=== PATIENT | male | born 1985 | race Caucasian/White ===

== ENCOUNTER 2018-02-16 00:34 | Emergency (ER) | payer OTHER ==
[2018-02-16 00:47] VITALS: TEMP 97.9
[2018-02-16] MEDS ORDERED: MORPHINE SULFATE 4 MG/ML SYRINGE IV STA (01:10)
[2018-02-16] MEDS ORDERED: DIPH,PERTUS(ACELL)TETVAC-LF 0.5 ML VIAL IM ONE (01:10)
[2018-02-16] MEDS ORDERED: ceFAZolin 2,000 MG in DEXTROSE/WATER 1 50ML.BAG IVPB STA (01:11)
[2018-02-16] MEDS ORDERED: ceFAZolin IN SWFI 2 GM/20 ML SYRINGE IVP ONE (01:30)
[2018-02-16] MEDS ORDERED: ONDANSETRON 4 MG/2 ML VIAL IVP STA (01:55)
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
[2018-02-16 02:02] LABS: Appearance,Urine Clear (Clear); Bilirubin,Urine Negative (Negative); Blood,Urine Negative (Negative); Color,Urine Light Yellow; Glucose,Urine (UA) Negative (Negative); Ketones,Urine Negative (Negative); Leukocyte Esterase,Urine Negative (Negative); Nitrite,Urine Negative (Negative); Protein,Urine Negative (Negative); Specific Gravity,Urine 1.006 (1.001-1.035); Urobilinogen,Urine <2.0 mg/dL (<2.0)
[2018-02-16 02:05] LABS: Basophils % (A) 0 %; Eosinophils % (A) 0 %; HCT 46.5 % (39.0-53.0); HGB 15.3 gm/dL (13.0-17.5); Lymphocytes # (A) 0.8 k/uL (1.0-4.8); Lymphocytes % (A) 5 %; MCH 32.1 pg (25.0-35.0); MCHC 32.8 g/dL (31.0-37.0); MCV 97.9 fL (80.0-100.0); Mean Platelet Volume 7.6; Monocytes # (A) 0.8 k/uL (0-1.0); Monocytes % (A) 4 %; Neutrophils # (A) 16.2 k/uL (1.3-7.7); Neutrophils % (A) 90 %; Platelet Count 163 k/uL (150-450); RBC 4.75 m/uL (4.30-5.90); RDW 12.5 % (11.5-15.5)
[2018-02-16 02:09] VITALS: RESP 18
[2018-02-16 02:09] LABS: Prothrombin Time 9.8 sec (9.0-12.0)
[2018-02-16 02:13] LABS: Amphetamine Screen,Urine Not Detected (NotDetected); Barbiturate Screen,Urine Not Detected (NotDetected); Benzodiazepines Screen,Urine Not Detected (NotDetected); Cocaine Screen,Urine Not Detected (NotDetected); Methadone Screen, Urine Not Detected (NotDetected); Opiate Screen,Urine Not Detected (NotDetected); Oxycodone Screen, Urine Not Detected (NotDetected); Phencyclidine Screen,Urine Not Detected (NotDetected); Tricyclic Antidepressant,Urine Not Detected (NotDetected); Urn Cannabinoid Scrn Detected (NotDetected)
[2018-02-16 02:14] LABS: Albumin 4.8 g/dL (3.5-5.0); Anion Gap 11 mmol/L; Calcium 9.5 mg/dL (8.4-10.2); Carbon Dioxide 25 mmol/L (22-30); Chloride 109 mmol/L (98-107); Glucose 110 mg/dL (74-99); Sodium 145 mmol/L (137-145); Total Bilirubin 0.5 mg/dL (0.2-1.3); Total Protein 7.7 g/dL (6.3-8.2)
[2018-02-16 02:23] LABS: Creatine Kinase 385 U/L (55-170)
[2018-02-16 02:24] LABS: Alcohol 208 mg/dL
[2018-02-16 02:25] LABS: ALT 23 U/L (21-72); AST 40 U/L (17-59); Alkaline Phosphatase 52 U/L (38-126); Blood Urea Nitrogen 9 mg/dL (9-20); Potassium 4.7 mmol/L (3.5-5.1)
[2018-02-16 02:36] LABS: Creatine Kinase MB 2.9 ng/mL (0.0-2.4); Troponin I <0.012 ng/mL (0.000-0.034)
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
[2018-02-16] MEDS ORDERED: MORPHINE SULFATE 4 MG/ML SYRINGE IVP STA ×2 (03:05→03:07)
[2018-02-16 03:13] VITALS: BP 117/73; PULSE 89
== END 2018-02-16 03:24 | disposition short-term general hospital (02) ==
LOC: EC 00:34
DX: S02.31XA Fracture of orbital floor, right side, initial encounter for closed fracture (principal); S02.40EA Zygomatic fracture, right side, initial encounter for closed fracture; S01.111A Laceration without foreign body of right eyelid and periocular area, initial encounter; F17.200 Nicotine dependence, unspecified, uncomplicated; F10.129 Alcohol abuse with intoxication, unspecified; Z23 Encounter for immunization; Y04.8XXA Assault by other bodily force, initial encounter; Y92.099 Unspecified place in other non-institutional residence as the place of occurrence of the external cause
CPT/HCPCS: 99285; 96374; 96375 ×2; 96376; 90471; 36415; 93005; 86900; 86901; 80053; 82550; 82553; 83605; 84484; 85025; 85610; 85730; 86850; 81003; 80306; 80320; 72125; 70486; 70450; 90715; J2270; J2405; J0690

== ENCOUNTER → 2018-08-07 | Outpatient (CLI) | payer OTHER ==
--- NOTE | 2018-08-07 13:50 | CT ---
EXAMINATION TYPE: CT facial bones wo con DATE OF EXAM: 08/07/2018 COMPARISON: 02/16/2018 HISTORY: Fracture of nasal bones CT DLP: 728 mGycm CONTRAST: 0 mL of Isovue 300 The paranasal sinuses are examined in the axial plane at 2 mm thick sections. Reconstructed images i n the coronal plane were obtained. There is been repair of prior facial bone fractures including inferior right orbital floor, anterior right maxillary sinus wall, anterior left maxillary wall. There is prior fracture of the nasal bones. There is left septal deviation. Zygomatic arches appear intact There is air-fluid levels within the maxillary sinuses. Sphenoid sinuses are clear. Ethmoid air cells and mucosal thickening within the anterior and right mid regions. Frontal sinuses are clear. Acute f ractures are not identified. Mastoid air cells are clear. IMPRESSIONS: 1. Air-fluid levels within the maxillary sinuses. Correlate for acute sinusitis. 2. Prior facial bone repair. 3. Old Fractures of the nasal bone and old fracture of the right posterior lateral maxillary sinus is evident.
== END | disposition home or self-care (01) ==
LOC: RADCTMAIN 13:12
PROVIDERS: ATTEND Dentist Oral and Maxillofacial Pathology
DX: Z09 Encounter for follow-up examination after completed treatment for conditions other than malignant neoplasm (principal); J34.89 Other specified disorders of nose and nasal sinuses; Z87.81 Personal history of (healed) traumatic fracture
CPT/HCPCS: 70486

== ENCOUNTER 2018-12-16 17:00 | Observation (INO) | payer OTHER ==
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
[2018-12-16 19:49] LABS: Basophils # (A) 0.1 k/uL (0-0.2); Basophils % (A) 1 %; Eosinophils # (A) 0.1 k/uL (0-0.7); Eosinophils % (A) 1 %; HCT 47.9 % (39.0-53.0); HGB 16.2 gm/dL (13.0-17.5); Lymphocytes # (A) 2.4 k/uL (1.0-4.8); Lymphocytes % (A) 33 %; MCH 31.5 pg (25.0-35.0); MCHC 33.8 g/dL (31.0-37.0); MCV 93.2 fL (80.0-100.0); Mean Platelet Volume 7.8; Monocytes # (A) 0.3 k/uL (0-1.0); Monocytes % (A) 4 %; Neutrophils # (A) 4.3 k/uL (1.3-7.7); Neutrophils % (A) 59 %; Platelet Count 188 k/uL (150-450); RBC 5.14 m/uL (4.30-5.90); RDW 13.6 % (11.5-15.5); WBC 7.3 k/uL (3.8-10.6)
[2018-12-16 20:00] LABS: Amphetamine Screen,Urine Not Detected (NotDetected); Barbiturate Screen,Urine Not Detected (NotDetected); Benzodiazepines Screen,Urine Not Detected (NotDetected); Cocaine Screen,Urine Not Detected (NotDetected); Methadone Screen, Urine Not Detected (NotDetected); Opiate Screen,Urine Not Detected (NotDetected); Oxycodone Screen, Urine Not Detected (NotDetected); Phencyclidine Screen,Urine Not Detected (NotDetected); Tricyclic Antidepressant,Urine Not Detected (NotDetected); Urn Cannabinoid Scrn Not Detected (NotDetected)
[2018-12-16 20:02] LABS: African American GFR (CKD) >90 (>60 ml/min/1.73 sqM); Anion Gap 12 mmol/L; Blood Urea Nitrogen 9 mg/dL (9-20); Calcium 9.3 mg/dL (8.4-10.2); Carbon Dioxide 27 mmol/L (22-30); Chloride 108 mmol/L (98-107); Glucose 99 mg/dL (74-99); Magnesium 2.3 mg/dL (1.6-2.3); Potassium 4.5 mmol/L (3.5-5.1); Sodium 147 mmol/L (137-145)
[2018-12-16 20:06] LABS: INR 0.9 (<1.2)
[2018-12-16 20:07] LABS: Alcohol 287 mg/dL
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
--- NOTE | 2018-12-16 21:28 | XR ---
EXAMINATION TYPE: XR chest 2V DATE OF EXAM: 12/16/2018 COMPARISON: None HISTORY: 33-year-old male with pain TECHNIQUE: PA and lateral views FINDINGS: The cardiomediastinal silhouette, aorta, and pulmonary vasculature are within normal limits. Lungs an d pleural spaces are clear. IMPRESSION: No acute cardiopulmonary process.
[2018-12-16] MEDS ORDERED: NICOTINE 14MG/24HR PATCH TRANSDERM STA (21:31)
[2018-12-16] MEDS ORDERED: NALOXONE 0.4 MG/ML 1 ML VIAL IV PRN (23:11)
[2018-12-16] MEDS ORDERED: ONDANSETRON 4 MG/2 ML VIAL IVP PRN (23:11)
[2018-12-16] MEDS ORDERED: ACETAMINOPHEN TAB 325 MG TAB PO PRN (23:11)
[2018-12-16] MEDS ORDERED: KETOROLAC 30 MG/ML 1 ML VIAL IVP PRN (23:11)
[2018-12-16] MEDS ORDERED: SODIUM CHLORIDE 0.9% 1,000 ML IV SCH (23:15)
[2018-12-16] MEDS ORDERED: LORazepam 2 MG/ML INJ IV PRN ×3 (23:48)
[2018-12-16] MEDS ORDERED: THIAMINE 100 MG/ML 2 ML VIAL IM STA (23:48)
[2018-12-17 00:35] VITALS: BMI 21.5
[2018-12-17] MEDS ORDERED: NICOTINE 14MG/24HR PATCH TRANSDERM SCH (01:00)
[2018-12-17 07:46] VITALS: BP 154/81; TEMP 98.3
[2018-12-17] MEDS ORDERED: FAMOTIDINE 20 MG TAB PO SCH (09:00)
[2018-12-17 11:42] VITALS: PULSE 102; RESP 14
[2018-12-17] MEDS ORDERED: NICOTINE 21MG/24HR PATCH TRANSDERM SCH (13:15)
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
--- NOTE | 2018-12-17 14:56 | P.DS ---
Providers Date of admission: 12/16/18 23:13 Attending physician: Saleem Vega Consults: 12/16/18 23:12 Consult Physician Routine Consulting Provider: Nancy Cooley Consult Reason/Comments: suicidal ideation Do you want consulting provider notified?: Yes Primary care physician: Cheryle Bingham Hospital Course: Please refer to my HPI Patient Condition at Discharge: Fair Plan - Discharge Summary New Discharge Prescriptions: No Action Ibuprofen [Motrin Ib] 400 mg PO Q6H PRN PRN Reason: Migraine Headache Discharge Medication List Ibuprofen [Motrin Ib] 400 mg PO Q6H PRN 12/17/18 [History] Follow up Appointment(s)/Referral(s): Cheryel Bingham MD [Primary Care Provider] - 3 Days Discharge Disposition: HOME SELF-CARE
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
[2018-12-17] MEDS ORDERED: THIAMINE 100 MG TAB PO SCH (17:30)
== END 2018-12-17 17:15 | disposition home or self-care (01) ==
LOC: EC 17:00 → 4SSUR 23:13
PROVIDERS: ADMIT Hospitalist; ATTEND Hospitalist
DX: F10.229 Alcohol dependence with intoxication, unspecified (principal); F10.29 Alcohol dependence with unspecified alcohol-induced disorder; R45.851 Suicidal ideations; G43.909 Migraine, unspecified, not intractable, without status migrainosus; F17.200 Nicotine dependence, unspecified, uncomplicated; Y90.8 Blood alcohol level of 240 mg/100 ml or more; Z79.1 Long term (current) use of non-steroidal anti-inflammatories (NSAID); Z87.820 Personal history of traumatic brain injury; Z87.828 Personal history of other (healed) physical injury and trauma
CPT/HCPCS: 96372; 96374; 82075; 99285; 36415; 80048; 83735; 85025; 85610; 80306; 71046; 72125; 70450; G0378 ×2; G0480; S4990 ×3; J3411; J2405; 80320

== ENCOUNTER → 2018-12-25 | Outpatient (CLI) | payer OTHER ==
[2018-12-25 13:19] LABS: Mean Platelet Volume 8.1; Platelet Count 175 k/uL (150-450)
[2018-12-25 18:14] LABS: Anion Gap 6.3 mmol/L (4.00-12.00); Carbon Dioxide 28.7 mmol/L (21.6-31.8); Potassium 4.4 mmol/L (3.5-5.5)
== END | disposition home or self-care (01) ==
LOC: LABWHC1 12:38
PROVIDERS: ATTEND Psychiatry & Neurology Neurology
DX: G44.329 Chronic post-traumatic headache, not intractable (principal)
CPT/HCPCS: 36415; 80051; 84450; 84460; 85049

== ENCOUNTER → 2018-12-25 | Outpatient (CLI) | payer OTHER ==
--- NOTE | 2018-12-25 12:59 | CT ---
EXAMINATION TYPE: CT brain wo con, CT facial bones wo con DATE OF EXAM: 12/25/2018 COMPARISON: 12/16/2018 HISTORY: Pain Unenhanced CT of the brain was performed. The ventricles, basal cisterns and sulci overlying the cerebral convexities demonstrate a normal appe arance. There is no evidence for intracranial hemorrhage or sulcal effacement. No mass effects are seen. Osseous calvarium is intact. Posterior right parietal scalp hematoma small in size. If symptoms persist consider MRI as clinically warranted. IMPRESSION: 1. No acute intracranial process is seen at this time. EXAMINATION TYPE: CT brain wo con, CT facial bones wo con DATE OF EXAM: 12/25/2018 COMPARISON: 08/07/2018 HISTORY: Pain Unenhanced CT of the facial bones was performed in the axial and coronal planes. Bone and soft tissu e window settings are submitted. Postsurgical changes noted involving the floor of the right orbit as well as the lateral wall of the right maxillary sinus and anterolateral wall of the left maxillary sinus. Post operative plate fixati on noted superolateral wall of the right orbit. There is mucosal thickening of the maxillary sinuses. Remote fracture right zygoma is noted as well. Healed nasal bone fractures noted. Chronic ethmoidal sinusitis identified as well. No bony destructive process to suggest underlying osteomyelitis at this time. IMPRESSION: 1. No evidence for acute depressed or displaced facial bone fracture. Surgical fixation as noted. Ch ronic ethmoidal and maxillary sinusitis.
== END | disposition home or self-care (01) ==
LOC: RADCTMAIN 12:11
PROVIDERS: ATTEND Psychiatry & Neurology Neurology
DX: G44.329 Chronic post-traumatic headache, not intractable (principal); Z87.820 Personal history of traumatic brain injury; J32.4 Chronic pansinusitis
CPT/HCPCS: 70450; 70486

== ENCOUNTER 2019-05-12 16:41 | Inpatient (IN) | payer OTHER ==
[2019-05-12] MEDS ORDERED: SODIUM CHLORIDE 0.9% 1,000 ML IV STA (16:53)
[2019-05-12] MEDS ORDERED: FAMOTIDINE 20 MG/2 ML VIAL IV STA (17:11)
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
--- NOTE | 2019-05-12 17:26 | XR ---
EXAMINATION TYPE: XR chest 1V portable DATE OF EXAM: 05/12/2019 COMPARISON: 12/16/2018 HISTORY: Chest pain TECHNIQUE: Single frontal view of the chest is obtained. FINDINGS: Central pulmonary vascular congestion is seen in comparison to the prior. There is no focal air space opacity, pleural effusion, or pneumothorax seen. The cardiac silhouette size is within no rmal limits. The osseous structures are intact. IMPRESSION: New central pulmonary vascular congestion. Vascular caliber may be exaggerated by low alfred g volumes in comparison to the prior. No focal consolidation.
[2019-05-12 17:54] LABS: Basophils % (A) 0 %; Eosinophils % (A) 0 %; HCT 48.4 % (39.0-53.0); HGB 16.3 gm/dL (13.0-17.5); Lymphocytes # (A) 1.6 k/uL (1.0-4.8); Lymphocytes % (A) 19 %; MCH 33.1 pg (25.0-35.0); MCHC 33.7 g/dL (31.0-37.0); MCV 98.4 fL (80.0-100.0); Mean Platelet Volume 6.2; Monocytes # (A) 0.3 k/uL (0-1.0); Monocytes % (A) 4 %; Neutrophils # (A) 6.4 k/uL (1.3-7.7); Neutrophils % (A) 76 %; Platelet Count 208 k/uL (150-450); RBC 4.92 m/uL (4.30-5.90); RDW 12.9 % (11.5-15.5); WBC 8.4 k/uL (3.8-10.6)
[2019-05-12 17:59] LABS: ALT 32 U/L (21-72); AST 63 U/L (17-59); African American GFR (CKD) >90 (>60 ml/min/1.73 sqM); Albumin 4.7 g/dL (3.5-5.0); Alkaline Phosphatase 80 U/L (38-126); Amylase 56 U/L (30-110); Anion Gap 8 mmol/L; Blood Urea Nitrogen 14 mg/dL (9-20); Calcium 8.9 mg/dL (8.4-10.2); Carbon Dioxide 26 mmol/L (22-30); Chloride 107 mmol/L (98-107); Glucose 77 mg/dL (74-99); Magnesium 1.8 mg/dL (1.6-2.3); Non-African American GFR(CKD) >90 (>60 ml/min/1.73 sqM); Potassium 4.6 mmol/L (3.5-5.1); Sodium 141 mmol/L (137-145); Total Bilirubin 0.4 mg/dL (0.2-1.3); Total Protein 7.2 g/dL (6.3-8.2)
[2019-05-12 18:01] LABS: INR 0.9 (<1.2)
[2019-05-12 18:02] LABS: Partial Thromboplastin Time 23.3 sec (22.0-30.0); Prothrombin Time 9.6 sec (9.0-12.0)
[2019-05-12 18:10] LABS: Alcohol 353 mg/dL
[2019-05-12] MEDS ORDERED: LORazepam 2 MG/ML INJ IV PRN ×2 (18:27)
[2019-05-12] MEDS ORDERED: NITROGLYCERIN SL TABS 0.4 MG TAB SUBLINGUAL PRN (18:27)
[2019-05-12] MEDS ORDERED: THIAMINE 100 MG/ML 2 ML VIAL IM STA (18:27)
[2019-05-12] MEDS ORDERED: ASPIRIN 81 MG PO STA (18:27)
[2019-05-12] MEDS ORDERED: PANTOPRAZOLE 40 MG/10 ML VIAL IVP STA (18:29)
[2019-05-12] MEDS: NICOTINE 14MG/24HR PATCH TRANSDERM SCH (21:07)
[2019-05-12] MEDS ORDERED: NEOMYCIN-BACITRACIN-POLY OINT 14 GM TUBE TOPICAL PRN (22:48)
[2019-05-12] MEDS ORDERED: ACETAMINOPHEN TAB 500 MG TAB PO PRN (22:56)
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
[2019-05-13] MEDS: LORazepam 2 MG/ML INJ IV PRN ×4 (02:24→23:31)
[2019-05-13 05:14] LABS: Basophils % (A) 1 %; Eosinophils # (A) 0.1 k/uL (0-0.7); Eosinophils % (A) 1 %; HCT 38.6 % (39.0-53.0); HGB 13.4 gm/dL (13.0-17.5); Lymphocytes # (A) 2.2 k/uL (1.0-4.8); Lymphocytes % (A) 36 %; MCHC 34.8 g/dL (31.0-37.0); MCV 97.6 fL (80.0-100.0); Mean Platelet Volume 6.5; Monocytes # (A) 0.4 k/uL (0-1.0); Monocytes % (A) 7 %; Neutrophils # (A) 3.3 k/uL (1.3-7.7); Neutrophils % (A) 53 %; Platelet Count 169 k/uL (150-450); RBC 3.96 m/uL (4.30-5.90); RDW 12.9 % (11.5-15.5); WBC 6.2 k/uL (3.8-10.6)
[2019-05-13 05:25] LABS: African American GFR (CKD) >90 (>60 ml/min/1.73 sqM); Anion Gap 5 mmol/L; Blood Urea Nitrogen 10 mg/dL (9-20); Calcium 8.4 mg/dL (8.4-10.2); Carbon Dioxide 27 mmol/L (22-30); Chloride 106 mmol/L (98-107); Cholesterol 122 mg/dL (<200); Glucose 58 mg/dL (74-99); HDL Cholesterol 67 mg/dL (40-60); LDL Cholesterol,Calculated 47 mg/dL (0-99); Non-African American GFR(CKD) >90 (>60 ml/min/1.73 sqM); Potassium 4.1 mmol/L (3.5-5.1); Sodium 138 mmol/L (137-145); Triglycerides 38 mg/dL (<150)
[2019-05-13 06:05] LABS: Glucose,Whole Blood 75 mg/dL (75-99)
[2019-05-13] MEDS: THIAMINE 100 MG TAB PO SCH ×2 (06:11→12:45)
[2019-05-13] MEDS: MULTIVITAMINS, THERA 1 EACH TAB PO SCH (08:08)
[2019-05-13] MEDS: NICOTINE 14MG/24HR PATCH TRANSDERM SCH (08:09)
[2019-05-13] MEDS: FOLIC ACID 1 MG TAB PO SCH (08:09)
[2019-05-13] MEDS: PANTOPRAZOLE 40 MG/10 ML VIAL IVP SCH ×2 (08:09→19:45)
[2019-05-13] MEDS ORDERED: PANTOPRAZOLE 40 MG/10 ML VIAL IVP SCH (09:00)
[2019-05-13] MEDS ORDERED: ASPIRIN 325 MG TAB PO SCH (09:00)
--- NOTE | 2019-05-13 09:12 | US ---
EXAMINATION TYPE: US gallbladder DATE OF EXAM: 05/13/2019 COMPARISON: NONE CLINICAL HISTORY: Abdominal tenderness.. Abdominal pain, nausea EXAM MEASUREMENTS: Liver Length: 15.6 cm Gallbladder Wall: 0.2 cm CBD: 0.6 cm Right Kidney: 11.8 x 6.2 x 5.8 cm Pancreas: Obscured by bowel gas Liver: appears Increased attenuation Gallbladder: no evidence of stones Evidence for sonographic Carrion's sign: no CBD: upper limits of normal Right Kidney: no evidence of hydronephrosis Visualized pancreas within normal limits on initial 2 images. Visualized liver is heterogeneously hyp erechoic. No suspicious masses or ductal dilatation. Gallbladder shows fold thickening without shadow ing mobile gallstones. IMPRESSION: Probable mild diffuse fatty infiltration of liver. No gallstones or sonographic evidence for acute cholecystitis.
--- NOTE | 2019-05-13 10:32 | ECHOF ---
Referral Reason: MEASUREMENTS -------- HEIGHT: 175.3 cm WEIGHT: 64.4 kg BP: 110/70 RVIDd: 3.2 cm (< 3.3) IVSd: 1.1 cm (0.6 - 1.1) LVIDd: 4.2 cm (3.9 - 5.3) LVPWd: 1.0 cm (0.6 - 1.1) IVSs: 1.5 cm LVIDs: 2.9 cm LVPWs: 1.3 cm LA Diam: 3.4 cm (2.7 - 3.8) LAESV Index (A-L): 18.25 ml/m Ao Diam: 3.4 cm (2.0 - 3.7) AV Cusp: 2.5 cm (1.5 - 2.6) MV EXCURSION: 20.304 mm (> 18.000) MV EF SLOPE: 155 mm/s (70 - 150) EPSS: 0.2 cm MV E Rogelio: 1.00 m/s MV DecT: 254 ms MV A Rogelio: 0.66 m/s MV E/A Ratio: 1.51 AV maxP.98 mmHg AV meanP.39 mmHg AR PHT: 637 ms TAPSE: 30.20 mm FINDINGS -------- Sinus rhythm. This was a technically good study. The left ventricular size is normal. There is borderline concentric left ventricular hypertrophy. Overall left ventricular systolic function is normal with, an EF between 60 - 65 %. The right ventricle is normal in size. Normal LA size by volume 22+/-6 ml/m2. The right atrium is normal in size. Aneurysmal Interatrial septum. The aortic valve is bicuspid. There is mild aortic valve sclerosis. There is [id number] aor tic regurgitation. There is mild aortic stenosis present. Peak/mean gradient across the Aortic Va lve is 21.98mmHg / 11.39mmHg. There is trace to mild mitral regurgitation. Trace tricuspid regurgitation present. Trace/mild (physiologic) pulmonic regurgitation. The aortic root size is normal. There is no pericardial effusion. CONCLUSIONS -------- 1. Sinus rhythm. 2. This was a technically good study. 3. The left ventricular size is normal. 4. There is borderline concentric left ventricular hypertrophy. 5. Overall left ventricular systolic function is normal with, an EF between 60 - 65 %. 6. The right ventricle is normal in size. 7. Normal LA size by volume 22+/-6 ml/m2. 8. The right atrium is normal in size. 9. Aneurysmal Interatrial septum. 10. The aortic valve is bicuspid. 11. There is mild aortic valve sclerosis. 12. There is [id number] aortic regurgitation. 13. Peak/mean gradient across the Aortic Valve is 21.98mmHg / 11.39mmHg. 14. There is trace to mild mitral regurgitation. 15. Trace tricuspid regurgitation present. 16. Trace/mild (physiologic) pulmonic regurgitation. 17. The aortic root size is normal. 18. There is no pericardial effusion. ASTHMA EDUCATOR: Claudia Grossman RDCS
--- NOTE | 2019-05-13 11:11 | CONS ---
CONSULTATION Mr. Vasques is a 34-year-old male with known history of chronic tobacco use and history of binge drinking, who came into the hospital after drinking a large amount of vodka. He was nauseated, had some vomiting, complained of abdominal and chest discomfort. He is feeling better today. He is active physically, has no exertional chest pain. Has no symptoms of significant dyspnea on exertion. He has occasional palpitation. No syncope. No clear PND nor orthopnea. No peripheral edema. He had chest discomfort yesterday when he coughs. He has no chest discomfort this morning. His coronary latisha factor is remarkable for the history of smoking about a pack and half a day. He has been told he has high blood pressure in the past. No history of diabetes or hyperlipidemia. REVIEW OF SYSTEMS: RESPIRATORY SYSTEM: No documented history of asthma, emphysema or bronchitis. GI SYSTEM: He had nausea as noted. No recent GI bleeding. No peptic ulcer disease. SYSTEM: No dysuria or hematuria. NERVOUS SYSTEM: No stroke or seizure. PHYSICAL EXAMINATION: A 34-year-old male, alert, oriented, in no apparent distress. Blood pressure 110/70 with a heart rate in the 80s. HEAD: Normocephalic. EYES: Sclerae nonicteric. NECK: Good upstroke, no bruit, no venous distention. LUNGS: Clear to auscultation. HEART: Regular rate and rhythm. S1, S2. No S3, plus S4. No murmur or rub. ABDOMEN: Soft, mild tenderness in the epigastrium. Positive bowel sounds, no organomegaly. EXTREMITIES: No edema, intact distal pulses. LAB DATA: Revealed troponin less than 0.012 for 3 samples. Alcohol level is 353. Cholesterol 122, LDL of 47, BUN and creatinine of 10 and 0.65, LDL of 47, potassium 4.1, hemoglobin is 13.4. EKG revealed a sinus mechanism, rate of 100, otherwise no acute changes. IMPRESSION: 1. Alcohol intoxication. 2. Chest discomfort atypical for ischemic heart disease. 3. Chronic tobacco use. RECOMMENDATION: From the cardiac standpoint, I will obtain an echocardiogram to rule out any evidence of cardiomyopathy. Otherwise, no further cardiac workup will be needed. I have discussed with him the importance of smoking and alcohol cessation. Thank you for this consult. Will follow with you. MMODL / IJN: [id number] /
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
[2019-05-14] MEDS: LORazepam 2 MG/ML INJ IV PRN (03:59)
[2019-05-14] MEDS: THIAMINE 100 MG TAB PO SCH (06:45)
[2019-05-14 06:52] LABS: Basophils % (A) 0 %; Eosinophils # (A) 0.1 k/uL (0-0.7); Eosinophils % (A) 1 %; HCT 43.5 % (39.0-53.0); HGB 15.2 gm/dL (13.0-17.5); Lymphocytes # (A) 1.1 k/uL (1.0-4.8); Lymphocytes % (A) 21 %; Mean Platelet Volume 6.7; Monocytes # (A) 0.4 k/uL (0-1.0); Monocytes % (A) 7 %; Neutrophils # (A) 3.7 k/uL (1.3-7.7); Neutrophils % (A) 69 %; Platelet Count 169 k/uL (150-450); RBC 4.49 m/uL (4.30-5.90); RDW 12.5 % (11.5-15.5); WBC 5.4 k/uL (3.8-10.6)
[2019-05-14 07:01] LABS: African American GFR (CKD) >90 (>60 ml/min/1.73 sqM); Anion Gap 7 mmol/L; Blood Urea Nitrogen 10 mg/dL (9-20); Calcium 9.2 mg/dL (8.4-10.2); Carbon Dioxide 26 mmol/L (22-30); Chloride 104 mmol/L (98-107); Glucose 83 mg/dL (74-99); Non-African American GFR(CKD) >90 (>60 ml/min/1.73 sqM); Potassium 3.8 mmol/L (3.5-5.1); Sodium 137 mmol/L (137-145)
--- NOTE | 2019-05-14 09:00 | PN ---
PROGRESS NOTE Mr. Vasques is a 34-year-old male who presented with evidence of abdominal and chest discomfort. He had history of acute alcoholism. He is feeling better today. He has some abdominal pain, no chest pain. His breathing has been stable. He denies any dizziness, palpitation. He denies any nausea. No cough. Hemodynamically, he is stable. PHYSICAL EXAMINATION: Blood pressure 135/80 with a heart rate in the 80s. LUNGS: Clear. HEART: Regular rate and rhythm, S1, S2 with a systolic ejection click and a soft systolic murmur. ABDOMEN: Soft, nontender. Positive bowel sounds, no organomegaly. EXTREMITIES: No edema. He had an echocardiogram that revealed a preserved left ventricular size and systolic function with bicuspid aortic valve with mild to moderate aortic regurgitation. BUN and creatinine of 10 and 0.6, hemoglobin of 15.2. IMPRESSION: 1. Chest discomfort, atypical related to acute alcoholism. 2. Chronic tobacco and alcohol abuse. 3. Bicuspid aortic valve, asymptomatic. RECOMMENDATION: From the cardiac standpoint, he should be able to be discharged home and followed as an outpatient regarding his aortic valve. I have discussed with him the findings. He is in full understanding and agreement. MMODL / IJN: [id number] /
[2019-05-14 09:06] VITALS: RESP 16; TEMP 97.5
[2019-05-14] MEDS: NICOTINE 14MG/24HR PATCH TRANSDERM SCH (09:08)
[2019-05-14] MEDS: PANTOPRAZOLE 40 MG/10 ML VIAL IVP SCH (09:08)
[2019-05-14] MEDS: MULTIVITAMINS, THERA 1 EACH TAB PO SCH (13:02)
[2019-05-14 13:04] VITALS: BP 154/92; PULSE 92
[2019-05-14] MEDS: FOLIC ACID 1 MG TAB PO SCH (13:04)
[2019-05-14] MEDS ORDERED: PANTOPRAZOLE 40 MG TABLET PO SCH (17:30)
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
== END 2019-05-14 14:28 | disposition home or self-care (01) | DRG 897 ==
LOC: EC 16:41 → 3SCARD 18:27 → OBSVTOIN 05-14 08:28
PROVIDERS: ADMIT Hospitalist; ATTEND Hospitalist
DX: F10.229 Alcohol dependence with intoxication, unspecified (principal); Q23.1 Congenital insufficiency of aortic valve; F32.9 Major depressive disorder, single episode, unspecified; R07.89 Other chest pain; F17.210 Nicotine dependence, cigarettes, uncomplicated; K21.9 Gastro-esophageal reflux disease without esophagitis; K29.00 Acute gastritis without bleeding; K70.10 Alcoholic hepatitis without ascites; Z88.5 Allergy status to narcotic agent
CPT/HCPCS: 36415; 71045; 76705; 80048; 80053; 80061; 80320; 82075; 82150; 83690; 83735; 84484; 85025; 85610; 85730; 93005; 93306; 96374; 99285